=== PATIENT | female | born 1995 | race Caucasian/White ===

== ENCOUNTER 2017-02-15 23:04 | Emergency (ER) | payer BC ==
[2017-02-15 23:11] VITALS: BP 140/87; PULSE 109; RESP 16; TEMP 99; O2SAT 96
[2017-02-15] MEDS ORDERED: HYDROCODONE/APAP 5/325 TAB PO ONE (23:31)
--- NOTE | 2017-02-15 23:38 | EDPHY ---
H & P Stated Complaint: woke up with pain on right hand between ring andpinkie no trauma Source: Patient Exam Limitations: No limitations - Personal History LMP (Females 10-55): Extended Cycle BCP/Inj Current Tetanus Diphtheria and Acellular Pertussis (TDAP): Yes Tetanus Vaccine Date: 2 years - Medical/Surgical History Hx Asthma: No Hx Chronic Respiratory Disease: No Hx Diabetes: No Hx Cardiac Disease: No Hx Renal Disease: No Hx Cirrhosis: No Hx Alcoholism: No Hx HIV/AIDS: No Hx Splenectomy or Spleen Trauma: No Other PMH: denies - Social History Smoking Status: Never smoked HPI/ROS: CHIEF COMPLAINT: Hand pain HISTORY OF PRESENT ILLNESS: Patient was falling asleep this evening when she had a sudden onset of pain in the right hand. This is between the 4th and 5th metacarpals of the right hand, dorsally. Moderate to severe pain. It is been constant for the last hour. Worse with palpation and movement. Radiates into the forearm. Minimal improvement with rest. No numbness or tingling. No trauma or injury. No IV drug use. No recent travel or surgery. No erythema or edema. No other associated complaints or modifying factors. PRIOR ORTHO INJURIES: None ESTABLISHED ORTHOPEDIST: None SOCIAL HISTORY: Student at [employer]. Nonsmoker. No medical diagnoses are medications REVIEW OF SYSTEMS: Ten systems reviewed and are negative unless otherwise noted in the HPI EXAMINATION General Appearance: Alert, no distress Cardiovascular: Pulses normal throughout. Symmetric radial pulses 2+. Brisk cap refill Neurological: A&O. No wrist drop. Hyperesthetic in the right ulnar distribution of the pinky and ulnar side of the ring finger. Two-point sensation intact. Skin: Warm and dry, no rash. No petechiae or purpura. Extremities: Right upper extremity: Pain out of proportion to examination with palpation on the right hand dorsally between the 4th and 5th metacarpals. Range of motion is intact but painful including the fingers, wrist and thumb. No wrist drop. Interossei strength is intact. No deformity. No ecchymosis. No erythema or streaking Psychiatric: Mood and affect normal DIFFERENTIAL DIAGNOSES: Including but not limited to fracture, contusion, hematoma, tenosynovitis, neuroma, osteomyelitis MDM: 11:30 p.m. Sudden onset of pain in the right hand, between the 4th and 5th metacarpals in the ulnar distribution. This is atraumatic. Very tender to palpation on examination. No outward signs of trauma. No erythema, edema or abnormality appearance. X-ray has been ordered. 11:53 p.m. Pain in the ulnar distribution of the right hand. There is no pain at the proximal elbow. There is short ulnar variant as interpreted by radiologist on x -ray. I suspect this is more likely due to partial entrapment distally and less likely cubital tunnel syndrome. She retains full range of motion. Painful but no deficits. Place her in a splint and have her call hand surgeon and/or general orthopedist tomorrow morning for definitive care. She is to return here immediately should she have any decrease in sensation of the right pinky or ring finger, difficulty flexing the affected fingers or worsening pain. She is comfortable with this plan and discharged home. I have discussed this case with Dr. Horton, and she agrees with this plan ED Precautions: Worsening pain. Erythema, edema, cyanosis, pallor, paresthesia or anesthesia. SUPERVISION: Shared visit with Dr. Horton (Sourav Whipple) Constitutional: Initial Vital Signs Temperature (C) 37.2 C 02/15/17 23:07 Heart Rate 109 H 02/15/17 23:07 Respiratory Rate 16 02/15/17 23:07 Blood Pressure 140/87 H 02/15/17 23:07 O2 Sat (%) 96 02/15/17 23:07 O2 Delivery Mode Room Air Allergies/Adverse Reactions: No Known Allergies Allergy (Unverified 02/15/17 23:07) Home Medications: Medication Instructions Recorded NK [No Known Home Meds] 02/15/17 Medical Decision Making - Diagnostics Imaging Results: Imaging Impressions Hand X-Ray 02/15/17 23:31 Impression: Short ulnar variant, of dubious significance. ED Course/Re-evaluation: PHYSICIAN DOCUMENTATION: The patient was evaluated and managed by the Physician Regulatory Affairs Analyst. My co- signature indicates that I have reviewed this chart and I agree with the findings and plan of care as documented. I am the secondary supervising physician. (Candida Horton) - Data Points Medications Given: Discontinued Medications Hydrocodone Bitart/Acetaminophen (Evant 5/325) 1 tab PO EDNOW ONE Stop: 02/15/17 23:32 Last Admin: 02/15/17 23:36 Dose: 1 tab Hydrocodone Bitart/Acetaminophen (Evant 5/325mg Prepack#6) 1 btl RICARDO EDNOW ONE Stop: 02/16/17 00:06 Last Admin: 02/16/17 00:14 Dose: 1 btl Departure - Departure Disposition: Home, Routine, Self-Care Clinical Impression: Hand pain, right Condition: Good Instructions: Hydrocodone/Acetaminophen (By mouth), Peripheral Neuropathy (ED) Additional Instructions: 1. Contact hand surgeon aor general orthopedist tomorrow for definitive care. 2. Ibuprofen, 600-800 mg every 8 hours for the next 5-7 days 3. Return here for weakness of the right pinky and ring finger, decreased sensation of the right pinky ring finger or worsening pain Referrals: [facility] [Other] - As per Instructions Yung Katz MD [Medical Doctor] - As per Instructions Ambrosio Joyner MD [Medical Doctor] - As per Instructions
[2017-02-16] MEDS ORDERED: HYDROCOD/APAP 5/325 PREPACK#6 BTL TAKEHOME ONE (00:05)
== END 2017-02-16 00:15 | disposition home or self-care (01) ==
DX: M79.641 Pain in right hand (principal)
CPT/HCPCS: L3908

== ENCOUNTER 2018-03-21 21:16 | Emergency (ER) | payer BC ==
[2018-03-21] MEDS ORDERED: ONDANSETRON 4 MG/2 ML VIAL ONE (21:27)
[2018-03-21] MEDS ORDERED: ONDANSETRON 4 MG/2 ML VIAL IVP ONE (21:33)
[2018-03-21] MEDS ORDERED: NS 1,000 ML IV ONE ×2 (21:33)
--- NOTE | 2018-03-21 21:42 | EDPHY ---
General Time Seen by Provider: 03/21/18 21:31 Narrative: CHIEF COMPLAINT: "heat exhaustion and nausea" HISTORY OF PRESENT ILLNESS: Patient presents with complaints of "I think heat exhaustion and I'm nauseated. " Symptoms started around 2:30pm today, after having been outside twice in the heat. She reports that she felt very hot and felt as though she became overheated. She developed some nausea and felt like her heart was racing. Tried drinking water with minimal improvement. She did not vomit. She has some generalized abdominal pain that she rates as a 5/10 for this. No worse with intake of food this evening. No better. She has kept liquids and without vomiting. She has no neck pain or stiffness. No headache. No trauma or injury. No other associated complaints or modifying factors. REVIEW OF SYSTEMS: Ten systems reviewed and are negative unless otherwise noted in the HPI PCP: None SPECIALISTS: None PAST MEDICAL HISTORY: Uncomplicated. Depo-Provera shot in place PAST SURGICAL HISTORY: Denies surgical history SOCIAL HISTORY: Nonsmoker. [employer] student. Originally from [place] FAMILY HISTORY: Noncontributory EXAMINATION General Appearance: Alert, no distress. Well-developed and well-nourished. Head: normocephalic, atraumatic Eyes: Pupils equal and round, no conjunctival pallor or injection ENT, Mouth: Mucous membranes mildly dry. Airway is widely patent. Neck: Normal inspection, supple, non-tender. No meningismus or rigidity Respiratory: Lungs are clear to auscultation. No wheezing rhonchi or crackles Cardiovascular: Regular rate and rhythm. No murmur Gastrointestinal: Abdomen is soft and nondistended. There is mild tenderness throughout. No point tenderness in any quadrant. Negative McBurney. Negative obturator. No guarding. No tympany rigidity. No CVA tenderness. Back: non-tender, no bony abnormalities Neurological: A&O, nonfocal, strength is symmetric in all 4 limbs. Skin: Warm and dry, no rash Extremities: Nontender, no pedal edema Psychiatric: Mood and affect normal DIFFERENTIAL DIAGNOSES: Including but not limited to sepsis, enteritis, gastritis, peptic ulcer, cholecystitis, cholelithiasis, dehydration MDM: 9:40 p.m. Nausea, dehydration symptoms since being outside earlier today. She has mild abdominal pain but benign abdominal examination. She is in no acute distress with no active vomiting. No abdominal surgeries. She is tachycardic and mildly febrile, meeting 2 criteria for SIRS, thus I will notify Dr. Brian. 9:45 p.m. Case discussed with Dr. Brian. He will evaluate the patient. 10:00 p.m. Notified by RN that the patient's vitals normalized. She is no longer tachycardic or febrile. CBC and chemistry unremarkable. HCG pending. 10:20 p.m. Patient re-evaluated. She is feeling better but still nauseated. No vomiting. Second liter IV fluid starting at this time. 11:11 p.m. Patient re-evaluated. She has completed 2 IV fluid. She is asking to be discharged home. She does have some mild abnormalities in the urine including 3 -5 blood cells and 2+ bacteria. I addressed this with her and she has no urinary complaints of any kind. She has no abdominal pain at this time. I have ordered a urine culture but do not feel she warrants antibiotics at this time. She will be discharged home with Zofran and promethazine with strict ED precautions for return of pain, return of fever or persistent nausea. At this time she is tolerating p.o. Intake with no complaints of pain anywhere. She has instructions to return here she does not have complete resolution of her nausea within 24 hr. I provided a work and school note for her. At this time her vital signs are within normal limits and she is discharged home stable condition. SUPERVISION: Patient was independently examined, but I discussed the case with my secondary supervising physician Dr. Brian - History Smoking Status: Never smoked - Objective Vital Signs: Initial Vital Signs Temperature (C) 100.8 F 03/21/18 21:21 Heart Rate 122 H 03/21/18 21:21 Respiratory Rate 18 03/21/18 21:21 Blood Pressure 147/109 H 03/21/18 21:21 O2 Sat (%) 95 03/21/18 21:21 O2 Delivery Mode Room Air Allergies/Adverse Reactions: No Known Allergies Allergy (Unverified 02/15/17 23:07) Home Medications: Medication Instructions Recorded [facility] 03/21/18 Laboratory Results: Laboratory Results 03/21/18 21:40 03/21/18 21:40 03/21/18 03/21/18 03/21/18 22:30 21:40 21:40 WBC 8.35 10^3/uL 10^3/uL (3.80-9.50) RBC 5.26 10^6/uL 10^6/uL (4.18-5.33) Hgb 12.2 g/dL L g/dL (12.6-16.3) Hct 38.6 % % (38.0-47.0) MCV 73.4 fL L fL (81.5-99.8) MCH 23.2 pg L pg (27.9-34.1) MCHC 31.6 g/dL L g/dL (32.4-36.7) RDW 18.2 % H % (11.5-15.2) Plt Count 244 10^3/uL 10^3/uL (150-400) MPV 10.7 fL fL (8.7-11.7) Neut % (Auto) 83.1 % H % (39.3-74.2) Lymph % (Auto) 9.9 % L % (15.0-45.0) [place] % (Auto) 6.0 % % (4.5-13.0) Eos % (Auto) 0.4 % L % (0.6-7.6) Baso % (Auto) 0.4 % % (0.3-1.7) Nucleat RBC Rel Count 0.0 % % (0.0-0.2) Absolute Neuts (auto) 6.94 10^3/uL H 10^3/uL (1.70-6.50) Absolute Lymphs (auto) 0.83 10^3/uL L 10^3/uL (1.00-3.00) Absolute Monos (auto) 0.50 10^3/uL 10^3/uL (0.30-0.80) Absolute Eos (auto) 0.03 10^3/uL 10^3/uL (0.03-0.40) Absolute Basos (auto) 0.03 10^3/uL 10^3/uL (0.02-0.10) Absolute Nucleated RBC 0.00 10^3/uL 10^3/uL (0-0.01) Immature Gran % 0.2 % % (0.0-1.1) Immature Gran # 0.02 10^3/uL 10^3/uL (0.00-0.10) Sodium 136 mEq/L mEq/L (135-145) Potassium 3.7 mEq/L mEq/L (3.3-5.0) Chloride 103 mEq/L mEq/L (97-110) Carbon Dioxide 22 mEq/l mEq/l (22-31) Anion Gap 11 mEq/L mEq/L (8-16) BUN 12 mg/dL mg/dL (7-23) Creatinine 0.8 mg/dL mg/dL (0.6-1.0) Estimated GFR > 60 Glucose 97 mg/dL mg/dL (70-100) Calcium 8.9 mg/dL mg/dL (8.5-10.4) Total Bilirubin 0.5 mg/dL mg/dL (0.1-1.4) Conjugated Bilirubin 0.3 mg/dL mg/dL (0.0-0.5) Unconjugated Bilirubin 0.2 mg/dL mg/dL (0.0-1.1) AST 26 IU/L IU/L (14-46) ALT 35 IU/L IU/L (9-52) Alkaline Phosphatase 68 IU/L IU/L (38-126) Total Protein 6.9 g/dL g/dL (6.3-8.2) Albumin 4.1 g/dL g/dL (3.5-5.0) Lipase 133 IU/L IU/L (23-300) Beta HCG, Quant < 2.39 mIU/mL mIU/mL (0.00-4.83) Urine Color YELLOW Urine Appearance HAZY Urine pH 7.0 (5.0-7.5) Ur Specific [place] 1.004 (1.002-1.030) Urine Protein NEGATIVE (NEGATIVE) Urine Ketones TRACE H (NEGATIVE) Urine Blood NEGATIVE (NEGATIVE) Urine Nitrate NEGATIVE (NEGATIVE) Urine Bilirubin NEGATIVE (NEGATIVE) Urine Urobilinogen NEGATIVE EU EU (0.2-1.0) Ur Leukocyte Esterase NEGATIVE (NEGATIVE) Urine RBC 5-10 /hpf H /hpf (0-3) Urine WBC 3-5 /hpf H /hpf (0-3) Ur Epithelial Cells TRACE /lpf /lpf (NONE-1+) Urine Bacteria 2+ /hpf H /hpf (NONE SEEN) Urine Glucose NEGATIVE (NEGATIVE) Medications Given: Discontinued Medications Famotidine (Pepcid) 20 mg IVP EDNOW ONE Stop: 03/21/18 21:44 Last Admin: 03/21/18 21:56 Dose: 20 mg Sodium Chloride (Ns) 1,000 mls @ 0 mls/hr IV ONCE ONE; Wide Open PRN Reason: Protocol Stop: 03/21/18 21:34 Last Admin: 03/21/18 21:37 Dose: 1,000 mls Sodium Chloride (Ns) 1,000 mls @ 0 mls/hr IV ONCE ONE; Wide Open PRN Reason: Protocol Stop: 03/21/18 21:34 Last Admin: 03/21/18 21:37 Dose: 1,000 mls Ondansetron HCl (Zofran) 4 mg IVP EDNOW ONE Stop: 03/21/18 21:34 Last Admin: 03/21/18 21:37 Dose: 4 mg Promethazine HCl (Phenergan) 12.5 mg IVP ONCE ONE Stop: 03/21/18 21:44 Last Admin: 03/21/18 21:56 Dose: 12.5 mg Departure - Departure Disposition: Home, Routine, Self-Care Clinical Impression: Nausea & vomiting Qualifiers: Vomiting type: unspecified Vomiting Intractability: non-intractable Qualified Code(s): R11.2 - Nausea with vomiting, unspecified Abdominal pain Qualifiers: Abdominal location: epigastric Qualified Code(s): R10.13 - Epigastric pain Condition: Good Instructions: Promethazine (By mouth), Ondansetron (By mouth), Acute Nausea and Vomiting (ED), Abdominal Pain (ED) Additional Instructions: 1. Zofran under the tongue every 6-8 hours as needed for nausea vomiting. Next dose due at midnight as needed 2. Promethazine 25 mg by mouth every 6-8 hours as needed. Next dose now if needed 3. Contact [facility] at for outpatient follow-up this week 4. Return to this emergency department if you do not have resolution of symptoms within 24 hr, or sooner for any worsening symptoms, abdominal pain or return of fever Referrals: [facility],. [Clinic] - As per Instructions Yamil Sharma MD [[facility] Primary Care Provider] - As per Instructions Stand Alone Forms: School Excuse, Work Excuse
[2018-03-21] MEDS ORDERED: PROMETHAZINE HCL 25 MG/ML INJ IVP ONE (21:43)
[2018-03-21] MEDS ORDERED: FAMOTIDINE 20 MG/2 ML SDV IVP ONE (21:43)
[2018-03-21 21:53] LABS: PLATELET COUNT 244 10^3/uL (150-400)
[2018-03-21 23:01] VITALS: BP 122/74
[2018-03-21] MEDS ORDERED: ONDANSETRON 4MG PREPACK#2 BTL TAKEHOME ONE (23:12)
[2018-03-21] MEDS ORDERED: PROMETHAZINE 25 MG PREPACK #4 BTL TAKEHOME ONE (23:12)
== END 2018-03-21 23:20 | disposition home or self-care (01) ==
DX: R11.2 Nausea with vomiting, unspecified (principal); R10.13 Epigastric pain; E86.9 Volume depletion, unspecified
CPT/HCPCS: 96374; J2405; J2550